=== PATIENT | female | born 1945 | race Caucasian/White ===

== ENCOUNTER → 2017-04-08 | Day surgery (SDC) | payer OTHER ==
[~2017-04-08] MED LIST: AMLODIPINE BESY10 MG PO; ASPIRIN81 M2 PO; LIPITOR20 MG PO; PANTOPRAZOLE SO40 MG PO; [UNRECOGNIZED DRUG - REMARK]
--- NOTE | ~2017-04-08 | OR ---
Unit #: [id number] #: [id number] Patient: CRYSTAL RENDON [id number] [address] [place], [place] [address] [id number] MR#: [id number] NAME: CRYSTAL RENDON ROOM: Date of Procedure: 04/08/2017 Admission Date: 04/08/2017 Surgeon: Diaz Garcia M.D. : 1945 Attending Physician: Diaz Garcia M.D. Referring Physician: Diaz Garcia M.D. Primary Care Physician: Wesley Ibarra M.D. OPERATIVE REPORT PREOPERATIVE DIAGNOSES Dyspepsia, heartburn, as well as colorectal cancer screening. PROCEDURES PERFORMED Upper gastrointestinal endoscopy and biopsy as well as colonoscopy with biopsies. POSTOPERATIVE DIAGNOSES For upper endoscopy: 1. The patient had grade 1 to 2 distal erosive esophagitis. 2. There was mild prepyloric antral erosive gastritis. 3. Rest of examination up to third part of duodenum was normal. Biopsy obtained from the antrum for CLOtest. For colonoscopy: 1. Single sessile polyp in the transverse colon. This was diminutive polyp and was removed using cold biopsy forceps. 2. [id number] sigmoid and descending colon diverticulosis. 3. Small internal hemorrhoids. 4. Rest of the examination up to cecum and terminal ileum was normal. The quality of prep was excellent. RECOMMENDATIONS 1. Pantoprazole 40 mg p.o. daily. 2. The patient will be followed up in the office in 3 months' time. 3. She will require a repeat colonoscopy in 5 years. SEDATION USED MAC. DESCRIPTION OF PROCEDURE Following detailed explanation of the potential risks and complications of an upper endoscopy and a colonoscopy, namely perforation, bleeding, and complications related to sedation, the patient was brought to GI lab, laid in the left lateral decubitus position. Lubricated tip of the Olympus video upper endoscope was passed through bite block into the proximal esophagus under direct vision. The entire esophageal mucosa was examined. The patient was noted to have grade 1 distal erosive esophagitis. The scope was then advanced into the gastric cavity and the latter was insufflated. Mucosa of the fundus, body, and antrum examined. The patient was noted to have mild pre-pyloric antral erosive gastritis. This Unit #: [id number] #: [id number] Patient: CRYSTAL RENDON was in the form of scattered erosions in the antral area. Pylorus was intubated with visualization of normal duodenal bulb and second and third part of the duodenum. Upon withdrawal and retroflexion, incisura, cardia, and greater curve examined and biopsy obtained from the antrum for CLOtest. The scope was then withdrawn in the distal esophagus. The entire esophageal mucosa was examined all the way up to pharynx. No additional findings noted. The examination was then turned by 180 degrees. The patient was positioned for a colonoscopy. A digital rectal examination was performed, which was normal. Lubricated tip of the Olympus video colonoscope was inserted through the anus and advanced under direct vision. The scope was advanced and passed up to sigmoid into descending colon. Multiple medium-sized diverticula were noted in this area. The scope tip was then navigated all the way up to cecum with visualization of the ileocecal valve and the appendiceal orifice. Preparation was excellent with good visualization and photodocumentation was obtained. Last several inches of the terminal ileum also visualized after intubation of the ileocecal valve and appeared normal. Successive segments of the colonic mucosa were examined upon withdrawal. A single sessile polyp was noted in the proximal transverse colon. This was diminutive and about 4 mm in size. It was removed using cold biopsy forceps. No additional polyps were noted. Other than the diverticulosis, the patient was also noted to have small internal hemorrhoids seen at the anal verge on retroflexion. The scope was then withdrawn. The patient returned to the recovery area. She tolerated the procedure without any postprocedure complications. Dictated by... Ira Jauregui/devi TD: 04/09/2017 07:17 JOB #: [id number] OPERATIVE REPORT Page 1 of 1 X Diaz Garcia MD PROCEDURE OPERATIVE NOTE
== END | disposition home or self-care (01) ==
LOC: COPS 06:51
DX: Z12.11 Encounter for screening for malignant neoplasm of colon (principal); D12.3 Benign neoplasm of transverse colon; K29.50 Unspecified chronic gastritis without bleeding; K22.10 Ulcer of esophagus without bleeding; K57.30 Diverticulosis of large intestine without perforation or abscess without bleeding; K64.8 Other hemorrhoids; I25.10 Atherosclerotic heart disease of native coronary artery without angina pectoris; I10 Essential (primary) hypertension; Z79.82 Long term (current) use of aspirin; Z79.899 Other long term (current) drug therapy
CPT/HCPCS: 87077; 88305